=== PATIENT | female | born 1985 | race Caucasian/White ===

== ENCOUNTER 2021-12-28 12:45 | Emergency (ER) | payer MEDICAID ==
[~2021-12-28] VITALS: Ht 162.6 cm; Wt 56.8 kg
[~2021-12-28 12:45] MED LIST: CEPH-357 PO; MOT200T PO; SULF-117 PO
[2021-12-28 12:54] VITALS: BP 137/68
== END 2021-12-28 16:09 | disposition home or self-care (01) ==
LOC: ER 12:46
DX: R21 Rash and other nonspecific skin eruption (principal); Z88.0 Allergy status to penicillin; Z88.5 Allergy status to narcotic agent; Z79.899 Other long term (current) drug therapy
CPT/HCPCS: 93971; 99284

== ENCOUNTER 2023-06-22 08:24 | Emergency (ER) | payer MEDICAID ==
[~2023-06-22] VITALS: Ht 160 cm; Wt 59.2 kg
[2023-06-22 08:47] VITALS: BP 121/65; PULSE 87; RESP 18; O2SAT 100
[2023-06-22] MEDS ORDERED: ibuprofen tablet 400 MG TABLET PO ONE (12:55)
== END 2023-06-22 14:26 | disposition home or self-care (01) ==
LOC: ER 08:24
DX: S90.32XA Contusion of left foot, initial encounter (principal); X58.XXXA Exposure to other specified factors, initial encounter; Y93.89 Activity, other specified; Y92.89 Other specified places as the place of occurrence of the external cause; Y99.8 Other external cause status
CPT/HCPCS: 73610; 73630; 99284